=== PATIENT | female | born 1950 | race African-American/Black ===

== ENCOUNTER 2018-04-05 21:21 | Inpatient (IN) | payer MEDICARE, OTHER ==
[2018-04-05 23:40] VITALS: BP 138/65
[2018-04-05] MEDS ORDERED: Maalox 30 mL Cup PO PRN (23:44)
[2018-04-05] MEDS ORDERED: Magnesium Hydroxide (MOM) 30 mL UDC PO PRN (23:44)
[2018-04-06] MEDS: Aspirin 81mg Chewable Tab PO SCH (09:29)
[2018-04-06] MEDS: Triamcinolone Acetonide 0.1% Cream 15 gm TP SCH ×2 (11:31→16:03)
--- NOTE | 2018-04-06 18:28 | Psychiatric Evaluation ---
DATE OF SERVICE: 04/05/2018 IDENTIFYING DATA: The patient is a 67-year-old -[place] woman, resident of residential facility. JUSTIFICATION FOR HOSPITALIZATION: The patient is admitted here after she was transferred from the in view of her paranoia, confusion and agitation. The patient has been transferred over here on a 5150 for being a danger to self and being gravely disabled. CHIEF COMPLAINT: "I don't know. I am trying to help other people." HISTORY OF PRESENT ILLNESS: This is the first psychiatric hospitalization for this patient who is reported to have been grossly confused and not able to even verbalize her name. The patient has no clue why she has to be there and the patient has been placed on a 5150 and admitted over here for stabilization. Chart is reviewed. The patient is interviewed. During the interview, the patient has been going on a tangent and is not able to provide any information. The patient has been getting into other people's rooms and needs to be redirected. His sleep and appetite prior to the hospitalization are reported to be poor. PAST PSYCHIATRIC HISTORY: Details are not known. MEDICAL HISTORY: Physical examination is requested to be done by Dr. Her. SUBSTANCE ABUSE HISTORY: None. LEGAL PROBLEMS: None at this time. STRENGTH AND ASSETS: The patient seems to be motivated. MENTAL STATUS EXAMINATION: The patient is a 67-year-old, looking her stated age, superficially cooperative. Eye contact is poor. Mood is noted to be irritable. Affect is constricted. The patient's insight and judgment at this time are noted to be very much impaired. Impulse control is noted to be limited. The patient is pacing on the unit. The patient's short and long-term memory are noted to be very poor. The patient has paranoia. The patient is getting easily irritable. The patient's behavior is a danger to others because of her getting into other people's businesses and getting agitated. DIAGNOSTIC IMPRESSION: AXIS IA: Psychosis, not otherwise specified. AXIS 1B: Dementia and behavioral changes secondary to dementia. AXIS II: None. AXIS III: As per Dr. Her. IMMEDIATE TREATMENT PLAN: The patient is going to be observed on the inpatient unit, provided with supportive psychotherapy. The patient is going to be closely monitored and encouraged to participate in the groups and verbalize the concerns. Once stabilized, the patient is going to be discharged to [facility] to be followed up on an outpatient basis. JOB# [id number]
[2018-04-06] MEDS ORDERED: Non-Formulary Item 1 EA (Donepezil Hcl [Donepezil Hcl Odt] 5 MG) PO SCH (21:00)
--- NOTE | 2018-04-06 21:26 | Consultation ---
DATE OF CONSULTATION: INTERNAL MEDICINE CONSULT REFERRING DOCTOR: Dr. Grullon. REASON FOR CONSULT: Medical management. HISTORY OF PRESENT ILLNESS: The patient is a 67-year-old -[place] female, who was admitted to an acute hospital on the 9 of this month for abdominal pain and possible pancreatitis. She was also somewhat altered and now has been transferred to [facility] for psych management and care. Per notes, she has a history of essential hypertension, atherosclerotic heart disease, high cholesterol, and eczema. She is currently comfortable and denies any medical history except for the eczema. She reports dry skin and itching in both upper extremities. PAST MEDICAL HISTORY: As noted above. PAST SURGICAL HISTORY: None listed. FAMILY HISTORY: Likely noncontributory to this admission. SOCIAL HISTORY: She smokes, but unable to quantify. She denies any current alcohol usage. She lives at a correction facility. ALLERGIES: NKDA. OUTPATIENT MEDICATIONS: Aspirin 81 mg q. day, Aricept 5 mg q. day, lisinopril 10 mg q. day, metoprolol 12.5 mg b.i.d., Seroquel 100 mg at bedtime, simvastatin 20 mg at bedtime, and she also takes hydrocortisone cream as needed. REVIEW OF SYSTEMS: CONSTITUTIONAL: She denies any fever, chills, or any recent weight loss. CARDIOVASCULAR: No chest pain or palpitations. PULMONARY: No cough or shortness of breath. GASTROINTESTINAL: No bowel habit changes. She had abdominal pain last week, currently stable. Denies any diarrhea, nausea, vomiting or constipation. GENITOURINARY: No bladder habit changes. NEUROLOGIC: Denies any syncope, any headaches, any blurry vision. PHYSICAL EXAMINATION: VITAL SIGNS: Temperature 97.5, pulse 77, respirations 19, BP 138/65, satting 94% on room air. GENERAL: Well-developed, well-nourished, awake, comfortable, able to answer simple questions, but seems somewhat confused. HEAD AND NECK: Normocephalic, atraumatic. Pupils reactive to light. Extraocular movements are intact. Oropharynx is moist and clear. CARDIAC: Regular rate and rhythm without any murmurs. LUNGS: Decreased at the bases, but overall clear to auscultation. ABDOMEN: Soft, supple, nontender, nondistended, normoactive bowel sounds. EXTREMITIES: Lower extremities, no clubbing, cyanosis or edema. SKIN: On both hands and forearms, there is rash with dry skin and excoriations. There is no erythema. There are no open wounds. NEUROLOGIC: Grossly intact, nonfocal. Cranial nerves 2-12 were grossly within normal limits. ASSESSMENT: 1. Acute psych decompensation. 2. History of dementia with behavioral disorder. 3. Essential hypertension. 4. Coronary artery disease. 5. History of hypercholesterolemia. 6. History of eczema with bilateral upper extremity rash. PLAN: The patient has been admitted to [facility] for further management and care. The patient will be kept on her current medications as scheduled. I will add Kenalog cream 0.1 twice a day. [facility]# [id number]
[2018-04-07] MEDS: Aspirin 81mg Chewable Tab PO SCH (08:38)
[2018-04-07] MEDS: Triamcinolone Acetonide 0.1% Cream 15 gm TP SCH ×2 (09:18→16:19)
--- NOTE | 2018-04-07 21:15 | Progress Notes ---
DATE: 04/07/2018 PSYCHIATRIC PROGRESS NOTE SUBJECTIVE: Staff was spoken to. The patient is interviewed. Mood is noted to be irritable. Affect is constricted. Coping skills are noted to be still poor. The patient has been getting easily irritable and angry and has been decompensating mainly after 3 p.m. No side effects to the medications are noted at this time. ASSESSMENT: The patient is still psychotic and demented. PLAN: To continue the patient with the supportive therapy. Encouraged the patient to verbalize the concerns rather than to act out. JOB# [id number]
[2018-04-08] MEDS: Triamcinolone Acetonide 0.1% Cream 15 gm TP SCH ×2 (09:20→16:47)
[2018-04-08] MEDS: Aspirin 81mg Chewable Tab PO SCH (10:14)
--- NOTE | 2018-04-08 22:35 | Progress Notes ---
DATE: 04/08/2018 PSYCHIATRIC PROGRESS NOTE SUBJECTIVE: Staff was spoken to. The patient is interviewed. Mood is noted to be irritable. Affect is constricted. The patient is confused and has been pacing most of the time on the unit. The patient has no insight into her illness. The patient is having both short-term as well as long-term memory deficits. The patient needs to be redirected. The patient is currently on the Seroquel 100 mg at bedtime and has been able to tolerate the medication. ASSESSMENT: The patient is still psychotic and impulsive. PLAN: To continue the patient with the supportive therapy and followup. JOB# [id number]
[2018-04-09] MEDS: Aspirin 81mg Chewable Tab PO SCH (09:32)
[2018-04-09] MEDS: Triamcinolone Acetonide 0.1% Cream 15 gm TP SCH ×2 (09:57→18:00)
--- NOTE | 2018-04-09 12:25 | Consultation ---
DATE OF CONSULTATION: 04/08/2018 REFERRING PHYSICIAN: Cliff Grullon MD TYPE OF CONSULTATION: Psychology. HISTORY OF PRESENT ILLNESS: The patient is a 67-year-old -[place] female. The patient is being admitted as a 5150 hold for being a danger to self and being gravely disabled. The following is by record review and the patient's self-report. According to record review, the patient was transferred from the [facility] in view of her paranoia, confusion and agitation. The patient is confused and not making much sense at the time of this clinical interview. The patient's thought process is markedly tangential and very difficult to cognitively redirect. The patient did not answer questions about experiencing any suicidal ideation, plan or intention. The patient does not know the reason why she is being hospitalized. PAST MEDICAL HISTORY: Please see history and physical by Dr. eHr. PAST PSYCHIATRIC HISTORY: Records are unavailable. SUBSTANCE ABUSE HISTORY: The patient did not answer this question. No records are available. PSYCHOSOCIAL HISTORY: The patient did not answer questions about occupational or educational history or scientologist affiliation. The patient did not answer questions about marital status or family relationships. The patient did not answer questions about history of physical or sexual abuse. The patient denied any current legal problems. MENTAL STATUS EXAMINATION: The patient appears to be her stated age. The patient's attitude is superficially cooperative. Eye contact is poor. Speech is rambling. Mood is irritable. Affect is constricted. Thought process shows to be markedly tangential with loose associations. The patient expressed some paranoid ideation. The patient did not answer questions about auditory or visual hallucinations or suicidal ideation, plan or intention. The patient seems very confused. Staff on the unit report the patient continues to pace back and forth. Impulse control is poor. Concentration is poor. Short and long-term memory appear to be impaired. This needs further evaluation. Sensorium was alert and oriented to self only. The patient did not participate in the interpretation of proverbs. Insight is impaired. Judgment is impaired. DIAGNOSTIC IMPRESSION: AXIS I: 1. Psychosis, not otherwise specified. 2. Dementia with behavioral disturbance. AXIS II: Deferred. AXIS III: Per Dr. Her. TREATMENT PLAN: The patient has been seen by Dr. Grullon for psychiatric evaluation and for the management of the patient's psychotropic medications. We will provide supportive psychotherapy to include reality orientation, reality differentiation and reality integration. We will provide motivational enhancement for the patient to become compliant and stay compliant with all aspects of her care and treatment. We will provide cognitive and behavioral redirection. We will provide coping strategies for phase of life issues. We will encourage the patient to be able to demonstrate emotional and self-regulation prior to her discharge. Thank you, Dr. Grullon for this consult and the opportunity to participate in this patient's care. [facility]# [id number] ED
--- NOTE | 2018-04-09 17:35 | Progress Notes ---
DATE: 04/09/2018 SUBJECTIVE: Staff was spoken to. The patient is interviewed. Mood is noted to be irritable. Affect is constricted. Coping skills are noted to be poor. The patient is still responding to internal stimuli and has been pacing on the unit and the patient is currently on 100 mg of the Seroquel and has been able to tolerate. No side effects to the medications are noted. However, the patient has both short-term as well as long-term memory deficits. JOB# [id number]
[2018-04-10] MEDS: Aspirin 81mg Chewable Tab PO SCH (08:57)
[2018-04-10] MEDS: Triamcinolone Acetonide 0.1% Cream 15 gm TP SCH ×2 (09:51→16:19)
--- NOTE | 2018-04-10 22:47 | Progress Notes ---
DATE: 04/10/2018 PSYCHIATRIC PROGRESS NOTE SUBJECTIVE: Staff was spoken to. The patient is interviewed. Mood is noted to be irritable. Affect is constricted. The patient is pacing on the unit. Insight and judgment at this time are noted to be very much impaired. Impulse control is noted to be limited. The patient has been getting easily agitated and needs to be redirected. The patient is currently on Seroquel 100 mg at bedtime and has been able to tolerate. No side effects to the medications are noted. ASSESSMENT: The patient is still paranoid and demented. PLAN: To continue the patient with the supportive therapy and followup. JOB# [id number]
[2018-04-11] MEDS: Triamcinolone Acetonide 0.1% Cream 15 gm TP SCH ×2 (08:44→17:06)
[2018-04-11] MEDS: Aspirin 81mg Chewable Tab PO SCH (08:44)
--- NOTE | 2018-04-11 15:49 | Progress Notes ---
DATE: 04/11/2018 SUBJECTIVE: Staff was spoken to. The patient is interviewed. Mood is noted to be irritable. Affect is constricted. Insight and judgment at this time are noted to be still impaired. Impulse control is noted to be limited. Coping skills are noted to be limited. No side effects to the medications are noted. The patient is currently on Seroquel 100 mg and has been able to tolerate the medication. The patient has been pacing most of the time. The patient is confused and patient gets more of these confusion, mainly towards the evening time. ASSESSMENT: The patient is still demented and psychotic. PLAN: To continue the patient with Seroquel and followup. JOB# [id number]
[2018-04-12] MEDS: Triamcinolone Acetonide 0.1% Cream 15 gm TP SCH ×2 (09:41→17:34)
[2018-04-12] MEDS: Aspirin 81mg Chewable Tab PO SCH (09:42)
--- NOTE | 2018-04-13 06:28 | Progress Notes ---
DATE: 04/12/2018 PSYCHIATRIC PROGRESS NOTE SUBJECTIVE: Staff was spoken to. The patient is interviewed. Mood is noted to be irritable. Affect is constricted. The patient is pacing most of the time on the unit. Insight and judgment appeared still impaired. Impulse control is noted to be limited. The patient has been having difficult time to cope with the stress. Continues to be very intrusive, argumentative. The patient is demented. ASSESSMENT: The patient is still psychotic and impulsive. PLAN: To continue the patient with the supportive therapy and follow. JOB# [id number]
[2018-04-13] MEDS: Aspirin 81mg Chewable Tab PO SCH (09:17)
[2018-04-13] MEDS: Triamcinolone Acetonide 0.1% Cream 15 gm TP SCH ×2 (09:20→17:53)
--- NOTE | 2018-04-13 18:40 | Progress Notes ---
DATE: 04/13/2018 SUBJECTIVE: Staff was spoken to. The patient is interviewed. Mood is noted to be irritable. Affect is constricted. The patient has been having the sundowning symptoms. The patient is confused at this time. The patient is reporting that people are after her and she needs to care for herself and she needs to protect herself. The patient's sleep is noted to be poor. Appetite is noted to be fair. The patient is currently on Seroquel 100 mg at bedtime and has been able to tolerate the medication. ASSESSMENT: The patient is still paranoid and demented. PLAN: To continue the patient with the supportive therapy and followup. JOB# [id number]
[2018-04-14] MEDS: Aspirin 81mg Chewable Tab PO SCH (09:15)
[2018-04-14] MEDS: Triamcinolone Acetonide 0.1% Cream 15 gm TP SCH ×2 (09:15→17:43)
--- NOTE | 2018-04-14 22:09 | Progress Notes ---
DATE: 04/14/2018 PSYCHIATRIC PROGRESS NOTE SUBJECTIVE: Staff was spoken to. The patient is interviewed. Mood is noted to b irritable. The patient has been pacing most of the time on the unit. Insight and judgment at this time are noted to be still impaired. The patient is currently on Seroquel 100 mg and has been able to tolerate. No side effects to the medications are noted. The patient continues to be paranoid. ASSESSMENT AND PLAN: The patient is still demented and the confusion is becoming more towards the end of the day and since the patient is getting easily agitated, it is decided to increase the dose of the Seroquel to 125 mg and follow the patient with the supportive therapy. [facility]# [id number]
[2018-04-15] MEDS: Triamcinolone Acetonide 0.1% Cream 15 gm TP SCH ×2 (08:25→16:48)
[2018-04-15] MEDS: Aspirin 81mg Chewable Tab PO SCH (08:28)
--- NOTE | 2018-04-16 01:32 | Progress Notes ---
DATE: 04/15/2018 SUBJECTIVE: Staff was spoken to. The patient is interviewed. Mood is noted to be irritable. Affect is constricted. The patient has been currently on Seroquel that was increased to 150 mg. The patient is pacing most of the time. The patient has no insight into her illness. ASSESSMENT: The patient is still demented and agitated. PLAN: To continue the patient with the supportive therapy, encouraged the patient to verbalize the concerns rather than to act out. JOB# [id number]
[2018-04-16] MEDS: Aspirin 81mg Chewable Tab PO SCH (08:40)
[2018-04-16] MEDS: Triamcinolone Acetonide 0.1% Cream 15 gm TP SCH ×2 (08:41→17:02)
--- NOTE | 2018-04-17 00:37 | Progress Notes ---
DATE: 04/16/2018 Staff was spoken to. The patient is interviewed. Mood is noted to be irritable. Affect is constricted. Insight and judgment at this time are noted to be improving. Impulse control seems to be fair. The patient, however, has been confused and pacing on the unit. No side effects to the medications are noted. The patient is currently on Seroquel, which is being given at 125 mg and has been able to tolerate. No side effects to the medications are noted. No aggressive behavior is noted. ASSESSMENT: The patient's impulsivity is resolving. PLAN: To continue the patient with supportive therapy. I encouraged the patient to verbalize the concerns rather than to act out. JOB# [id number]
[2018-04-17] MEDS: Aspirin 81mg Chewable Tab PO SCH (08:25)
[2018-04-17] MEDS: Triamcinolone Acetonide 0.1% Cream 15 gm TP SCH ×2 (08:28→17:39)
--- NOTE | 2018-04-17 19:53 | Progress Notes ---
DATE: 04/17/2018 SUBJECTIVE: Staff was spoken to. The patient is interviewed. Mood is noted to be anxious. Affect is appropriate. The patient has been able to be redirected. Insight and judgment are noted to be still improving. Impulse control is noted to be fair today. The patient, however, has confusion at times, particularly towards the end of the day. The patient's behavior is not a danger to self and others and hence it is decided to discharge the patient for followup on outpatient basis. JOB# [id number]
[2018-04-18] MEDS: Triamcinolone Acetonide 0.1% Cream 15 gm TP SCH (08:11)
[2018-04-18] MEDS: Aspirin 81mg Chewable Tab PO SCH (08:11)
--- NOTE | 2018-04-18 14:44 | Progress Notes ---
DATE: 04/18/2018 PSYCHIATRIC PROGRESS NOTE SUBJECTIVE. Staff was spoken to. The patient is interviewed. Mood is noted to be anxious. Affect is appropriate. Not suicidal or homicidal. Insight and judgment at this time are noted to be still impaired. Impulse control is noted to be limited. Coping skills are noted to be limited. The patient has been having difficult time to cope with the stress. No side effects to the medications are noted. ASSESSMENT: The patient is stabilizing. PLAN: To continue the patient with the supportive therapy and discharge the patient to the care of her daughter today. JOB# [id number]
--- NOTE | 2018-04-21 11:53 | Discharge Summary ---
DATE OF DISCHARGE: 04/18/2018 IDENTIFYING DATA: The patient is a 67-year-old -[place] woman, resident of a half-way facility. JUSTIFICATION OF HOSPITALIZATION: The patient is admitted from the [facility] in view of her paranoia, confusion, and agitated. CHIEF COMPLAINT: "I do not know. I am trying to help other people." DIAGNOSES AT THE TIME OF ADMISSION: AXIS I: A. Psychotic disorder, not otherwise specified. B. Dementia with behavioral changes. AXIS II: None. AXIS III: As per Dr. Her. HISTORY OF PRESENT ILLNESS: Please review 04/06/2018 dictation done by me. Physical examination was done by Dr. Her and the patient was also seen by Dr. Shaver for therapy. HOSPITAL COURSE AND RESPONSE TO TREATMENT: The patient has been closely monitored on the inpatient unit, provided with supportive psychotherapy. The patient has been encouraged to verbalize the concerns rather than to act out and the patient has been given the zolpidem and then Ativan p.r.n. and Seroquel was gradually increased to 125 mg at bedtime. With these medications, the patient has been observed and was noted to be doing fairly well and hence the patient was finally discharged to be followed up on an outpatient basis. MENTAL STATUS EXAMINATION: At the time of discharge, the patient's mood is noted to be less irritable. Affect is appropriate. Not suicidal or homicidal. Insight and judgment are improving. Impulse control seems to be fair. No side effects to the medications are noted at the time of discharge. CONDITION: At the time of discharge noted to be stable. DIAGNOSES AT THE TIME OF DISCHARGE: AXIS I: Psychotic disorder, not otherwise specified. AXIS II: None. AXIS III: As per Dr. Gomes. AFTERCARE PLAN: The patient is discharged to [facility] to be followed up on an outpatient basis. JOB# [id number]
== END 2018-04-18 11:50 | disposition home or self-care (01) | DRG 885 ==
LOC: GERO 21:21
PROVIDERS: ADMIT Psychiatry & Neurology Psychiatry; ATTEND Psychiatry & Neurology Psychiatry
DX: F23 Brief psychotic disorder (principal); F03.91 Unspecified dementia, unspecified severity, with behavioral disturbance; I10 Essential (primary) hypertension; I25.10 Atherosclerotic heart disease of native coronary artery without angina pectoris; E78.5 Hyperlipidemia, unspecified; F17.210 Nicotine dependence, cigarettes, uncomplicated; E78.00 Pure hypercholesterolemia, unspecified; R21 Rash and other nonspecific skin eruption
CPT/HCPCS: G0410; Z7610